=== PATIENT | male | born 1990 | race Two or more races ===

== ENCOUNTER 2022-11-23 13:20 | Inpatient (IN) | payer OTHER ==
[~2022-11-23] VITALS: Ht 170.2 cm; Wt 89.3 kg
[2022-11-23] MEDS ORDERED: ONDANSETRON HCL 4 MG/2 ML VIAL IV PRN (15:15)
[2022-11-23] MEDS ORDERED: VANCOMYCIN 1GM/250ML 250 ML IV ONE (15:15)
[2022-11-23 15:28] LABS: Basophils # (auto) 0 10 ^3/uL (0-0.2); Basophils % (auto) 0.2 % (0.0-2.0); Eosinophils # (auto) 0.1 10 ^3/uL (0-0.8); Eosinophils % (auto) 1.4 % (0.0-7.0); Hematocrit 41.4 % (41.0-53.0); Hemoglobin 14.1 g/dL (13.5-17.5); Mean Corpuscular Hemoglobin 29.8 pg (28.0-32.0); Mean Corpuscular Hgb Conc. 33.9 g/dL (32.0-36.0); Mean Corpuscular Volume 87.9 fL (80.0-100.0); Monocytes # (auto) 0.6 10 ^3/uL (0-1.3); Monocytes % (auto) 8.7 % (0.0-12.0); Neutrophils # (auto) 4.4 10 ^3/uL (1.6-8.6); Neutrophils % (auto) 61.7 % (37.0-80.0); Nucleated Red Blood Cells % 0.1 %; Red Blood Cells 4.71 10^6/uL (4.5-5.90); White Blood Cell 7.1 10^3/uL (4.4-10.8)
[2022-11-23] MEDS ORDERED: CLINDAMYCIN 900MG IV 50 ML IV ONE (15:30)
[2022-11-23 16:19] LABS: Alanine Aminotransferase 25 U/L (7-40); Albumin 4.8 g/dL (3.2-4.8); Alkaline Phosphatase 65 U/L (46-116); Anion Gap 9.2 (5-15); Aspartate Aminotransferase 12 U/L (13-40); Bilirubin, Total 0.4 mg/dL (0.2-1.0); Blood Urea Nitrogen 11 mg/dL (9-23); Calcium 9.8 mg/dL (8.5-10.1); Carbon Dioxide 25.8 mmol/L (20-30); Chloride 106 mmol/L (98-107); Glucose 92 mg/dL (74-106); Sodium 141 mmol/L (136-145); Total Protein 7.9 g/dL (5.7-8.2)
[2022-11-23 16:27] LABS: CRP High Sensitivity 1.81 mg/dL (<1.0)
[2022-11-23] MEDS: HYDROcodone-ACET 10/325MG TAB PO PRN ×2 (16:59→21:49)
[2022-11-23] MEDS ORDERED: VANCOMYCIN PER PHARMACY 0 MG IV SCH (17:00)
[2022-11-23 17:15] VITALS: PULSE 88; RESP 18; O2SAT 97
[2022-11-23 20:00] VITALS: PULSE 80; RESP 16; O2SAT 99
[2022-11-23 20:20] LABS: Urine Bacteria NONE SEEN /hpf (None Seen); Urine Blood Negative /uL (Negative); Urine Clarity Clear (Clear); Urine Color Yellow (Yellow); Urine Mucus FEW (None Seen); Urine Protein, UAD Negative (Negative); Urine Specific Gravity 1.024 (1.001-1.035); Urine Urobilinogen Normal (Negative); Urine WBC 3 /hpf (0 - 3); Urine pH 5.5 (5.0-8.0)
[2022-11-23 21:25] VITALS: BP 126/82; PULSE 61; RESP 16; TEMP 98.9
[2022-11-23 23:22] VITALS: BP 126/82; PULSE 61; RESP 16; TEMP 98.9; O2SAT 96
[2022-11-24] MEDS: VANCOMYCIN 1GM/250ML 250 ML IV SCH ×3 (00:42→16:51)
[2022-11-24 05:00] VITALS: BP 122/80; PULSE 64; RESP 18; TEMP 98; O2SAT 99
[2022-11-24 08:00] VITALS: O2SAT 98
[2022-11-24 08:48] LABS: INR 1.04 (0.9-1.15); Partial Thromboplastin Time 28.4 SEC (24.5-34.5); Prothrombin Time 10.9 sec (9.3-11.8)
[2022-11-24 09:00] VITALS: BP 113/68; PULSE 65; RESP 16; TEMP 97.8; O2SAT 95
[2022-11-24] MEDS ORDERED: ENOXAPARIN SOD 40 MG/0.4 ML SYRINGE SC SCH (10:00)
[2022-11-24] MEDS ORDERED: BACITRACIN TOP OINT 1 UD PKG TOP ONE (10:03)
[2022-11-24] MEDS ORDERED: LIDOCAINE W/ EPINEPHRINE 1% 20ML VIAL ONE (10:03)
[2022-11-24] MEDS ORDERED: ceFAZolin 1GM/50ML 100 ML IV ONE (11:31)
[2022-11-24] MEDS ORDERED: fentaNYL CITRATE 100 MCG/2 ML VL ONE (12:15)
[2022-11-24] MEDS ORDERED: MIDAZOLAM HCL 2MG/2ML 2ml VIAL (1mg/ml) ONE (12:16)
[2022-11-24] MEDS ORDERED: MEPERIDINE HCL (50 MG/ML) 1 ML VIAL ONE (12:19)
[2022-11-24] MEDS ORDERED: LABETALOL HCL 5 MG/ML 4ML SYRINGE IV PRN (12:30)
[2022-11-24] MEDS ORDERED: ePHEDrine SULFATE 50 MG/ML AMP IV PRN (12:30)
[2022-11-24] MEDS ORDERED: MIDAZOLAM HCL 2MG/2ML 2ml VIAL (1mg/ml) IV PRN (12:30)
[2022-11-24] MEDS ORDERED: MORPHINE SULFATE 4 MG/ML SYR/VIAL IV PRN (12:30)
[2022-11-24] MEDS ORDERED: HYDROmorphone HCL 2 MG/ML VL/or syr IV PRN (12:30)
[2022-11-24] MEDS ORDERED: ONDANSETRON HCL 4 MG/2 ML VIAL IV PRN (12:30)
[2022-11-24] MEDS ORDERED: DexAMETHasone SOD PHOS 10MG/1ML VIAL INJ ONE (12:46)
[2022-11-24] MEDS ORDERED: PROPOFOL 10 MG/ML 20 ML IV ONE (12:52)
[2022-11-24 17:00] VITALS: BP 117/63; PULSE 67; RESP 16; TEMP 97.2; O2SAT 96
[2022-11-24 20:00] VITALS: PULSE 92; RESP 20; O2SAT 98
[2022-11-24] MEDS: HYDROcodone-ACET 10/325MG TAB PO PRN (20:39)
[2022-11-24 22:00] VITALS: BP 128/61; PULSE 92; RESP 20; TEMP 97.9; O2SAT 93
[2022-11-25] VITALS (7 sets, daily range): BP systolic 104–151; BP diastolic 46–90; PULSE 55–78; RESP 18–20; TEMP 97.4–98; O2SAT 94–98
[2022-11-25] MEDS: VANCOMYCIN 1GM/250ML 250 ML IV SCH ×4 (00:42→18:43)
[2022-11-25] MEDS: HYDROcodone-ACET 10/325MG TAB PO PRN ×4 (07:32→22:09)
[2022-11-26] VITALS (7 sets, daily range): BP systolic 109–145; BP diastolic 50–73; PULSE 58–77; RESP 15–18; TEMP 98.1–98.3; O2SAT 93–100
[2022-11-26] MEDS: VANCOMYCIN 1GM/250ML 250 ML IV SCH ×3 (00:46→16:46)
[2022-11-26] MEDS: HYDROcodone-ACET 10/325MG TAB PO PRN ×3 (05:29→16:45)
[2022-11-26 14:06] LABS: Chlamydia Trachomatis, NAA Negative (Negative); Neisseria gonorrhoeae, NAA Negative (Negative)
[2022-11-27] MEDS: HYDROcodone-ACET 10/325MG TAB PO PRN ×4 (00:18→16:59)
[2022-11-27] MEDS: VANCOMYCIN 1GM/250ML 250 ML IV SCH ×3 (00:25→17:00)
[2022-11-27 05:00] VITALS: BP 117/48; PULSE 53; RESP 18; TEMP 98.1; O2SAT 95
[2022-11-27 09:01] VITALS: BP 106/47; PULSE 56; RESP 16; TEMP 98; O2SAT 96
[2022-11-27 12:42] VITALS: BP 149/85; PULSE 88; RESP 18; TEMP 98.5; O2SAT 94
[2022-11-27 16:41] VITALS: BP 145/58; PULSE 57; RESP 15; TEMP 97.8; O2SAT 97
[2022-11-27 20:00] VITALS: PULSE 67; RESP 17; O2SAT 97
[2022-11-27 22:00] VITALS: BP 117/55; PULSE 67; RESP 17; TEMP 97.9; O2SAT 97
[2022-11-28] MEDS: HYDROcodone-ACET 10/325MG TAB PO PRN ×5 (01:11→21:55)
[2022-11-28] MEDS: VANCOMYCIN 1GM/250ML 250 ML IV SCH ×3 (01:11→17:39)
[2022-11-28 05:00] VITALS: BP 114/53; PULSE 64; RESP 17; TEMP 98.1; O2SAT 97
[2022-11-28 08:47] VITALS: BP 113/56; PULSE 75; RESP 16; TEMP 97.9; O2SAT 96
[2022-11-28 12:21] VITALS: BP 99/66; PULSE 67; RESP 16; TEMP 98.2; O2SAT 98
[2022-11-28 16:26] VITALS: BP 114/70; PULSE 63; RESP 15; TEMP 97.9; O2SAT 95
[2022-11-28 20:00] VITALS: BP 122/71; PULSE 64; RESP 20; TEMP 97.7; O2SAT 97
[2022-11-28 22:00] VITALS: BP 122/71; PULSE 64; RESP 20; TEMP 97.7; O2SAT 97
[2022-11-29] MEDS: VANCOMYCIN 1GM/250ML 250 ML IV SCH ×3 (00:50→17:05)
[2022-11-29 05:00] VITALS: BP 103/56; PULSE 49; RESP 16; TEMP 97.6; O2SAT 97
[2022-11-29] MEDS: HYDROcodone-ACET 10/325MG TAB PO PRN ×2 (08:46→17:05)
[2022-11-29 09:00] VITALS: BP 112/54; PULSE 67; RESP 19; TEMP 97.8; O2SAT 100
[2022-11-29 13:00] VITALS: BP 111/48; PULSE 71; RESP 19; TEMP 97.7; O2SAT 100
[2022-11-29 16:58] VITALS: BP 114/69; PULSE 79; RESP 19; TEMP 97.9; O2SAT 100
[2022-11-29 20:00] VITALS: BP 112/68; PULSE 78; RESP 18; TEMP 97.9; O2SAT 100
[2022-11-29 22:00] VITALS: BP 122/63; PULSE 75; RESP 18; TEMP 97.9; O2SAT 95
[2022-11-30] MEDS: VANCOMYCIN 1GM/250ML 250 ML IV SCH ×3 (02:11→17:37)
[2022-11-30 04:53] VITALS: BP 118/51; PULSE 64; RESP 19; TEMP 98.4; O2SAT 96
[2022-11-30 09:00] VITALS: BP 129/67; PULSE 65; RESP 20; TEMP 98.5; O2SAT 96
[2022-11-30] MEDS: HYDROcodone-ACET 10/325MG TAB PO PRN ×2 (10:05→17:42)
[2022-11-30 13:00] VITALS: BP 128/68; PULSE 69; RESP 20; TEMP 97.9; O2SAT 92
[2022-11-30 17:00] VITALS: BP 142/62; PULSE 79; RESP 19; TEMP 97.5; O2SAT 96
[2022-11-30 20:00] VITALS: PULSE 67; RESP 14; O2SAT 94
[2022-11-30 22:00] VITALS: BP 122/71; PULSE 67; RESP 14; TEMP 98.2; O2SAT 94
[2022-12-01] MEDS: VANCOMYCIN 1GM/250ML 250 ML IV SCH ×3 (00:51→17:58)
[2022-12-01 05:00] VITALS: BP 104/58; PULSE 66; RESP 14; TEMP 98; O2SAT 98
[2022-12-01 06:27] LABS: Basophils # (auto) 0 10 ^3/uL (0-0.2); Basophils % (auto) 0.4 % (0.0-2.0); Eosinophils # (auto) 0.2 10 ^3/uL (0-0.8); Eosinophils % (auto) 2.7 % (0.0-7.0); Hematocrit 42.4 % (41.0-53.0); Lymphocytes # (auto) 2.5 10 ^3/uL (0.4-5.4); Lymphocytes % (auto) 28.9 % (10.0-50.0); Mean Corpuscular Hgb Conc. 35.4 g/dL (32.0-36.0); Mean Corpuscular Volume 84.7 fL (80.0-100.0); Monocytes # (auto) 0.8 10 ^3/uL (0-1.3); Monocytes % (auto) 9.7 % (0.0-12.0); Neutrophils # (auto) 5.1 10 ^3/uL (1.6-8.6); Neutrophils % (auto) 58.3 % (37.0-80.0); Nucleated Red Blood Cells % 0.1 %; Red Blood Cells 5.01 10^6/uL (4.5-5.90); Red Cell Distribution Width 12.8 % (11.8-14.3); White Blood Cell 8.7 10^3/uL (4.4-10.8)
[2022-12-01 06:45] LABS: Calcium 9.6 mg/dL (8.7-10.4); Chloride 103 mmol/L (98-107); Potassium 4.3 mmol/L (3.5-5.1); Sodium 137 mmol/L (136-145)
[2022-12-01 06:46] LABS: Anion Gap 6.7 (5-15); Carbon Dioxide 27.3 mmol/L (20-30)
[2022-12-01 06:51] LABS: BUN/Creatinine Ratio 8.8 (10.0-20.0); Blood Urea Nitrogen 10 mg/dL (9-23); Glucose 94 mg/dL (74-106)
[2022-12-01 09:00] VITALS: BP 139/69; PULSE 60; RESP 20; TEMP 97.8; O2SAT 98
[2022-12-01] MEDS: HYDROcodone-ACET 10/325MG TAB PO PRN ×2 (10:39→17:58)
[2022-12-01 13:00] VITALS: BP 125/66; PULSE 58; RESP 19; TEMP 98.6; O2SAT 99
[2022-12-01 17:00] VITALS: BP 129/70; PULSE 69; RESP 19; TEMP 98.5; O2SAT 98
[2022-12-01 20:00] VITALS: O2SAT 97
[2022-12-01 22:00] VITALS: BP 124/67; PULSE 74; RESP 18; TEMP 98.2; O2SAT 97
[2022-12-02] MEDS: VANCOMYCIN 1GM/250ML 250 ML IV SCH ×3 (01:22→18:11)
[2022-12-02 05:00] VITALS: BP 106/45; PULSE 49; RESP 18; TEMP 98; O2SAT 100
[2022-12-02 07:30] VITALS: TEMP 36.7
[2022-12-02 08:00] VITALS: BP 101/60; PULSE 61; RESP 20; TEMP 97.7; O2SAT 96
[2022-12-02 12:00] VITALS: BP 119/58; PULSE 79; RESP 20; TEMP 97.8; O2SAT 94
[2022-12-02 16:00] VITALS: BP 132/61; PULSE 65; RESP 20; TEMP 98.3; O2SAT 94
[2022-12-02 20:00] VITALS: O2SAT 97
[2022-12-02] MEDS: HYDROcodone-ACET 10/325MG TAB PO PRN (22:02)
[2022-12-03] MEDS: VANCOMYCIN 1GM/250ML 250 ML IV SCH ×2 (00:40→08:37)
[2022-12-03 07:30] VITALS: TEMP 36.8
[2022-12-03 08:00] VITALS: BP 99/34; PULSE 55; RESP 20; TEMP 98.4; O2SAT 95; O2SAT 97
[2022-12-03] MEDS: HYDROcodone-ACET 10/325MG TAB PO PRN (08:37)
[2022-12-03 13:00] VITALS: BP 111/54; PULSE 62; RESP 20; TEMP 98.7; O2SAT 97
[2022-12-03] MEDS ORDERED: CIPR500T4 PO (14:23)
[2022-12-03 15:47] VITALS: TEMP 37.1
== END 2022-12-03 16:00 | DRG 718 ==
LOC: ER 13:20 → EEVIPCON 13:20 → OVERFLOW 16:37 → WEST WING 21:18
PROVIDERS: ADMIT Internal Medicine; ATTEND Internal Medicine
PROC: 0V950ZZ Drainage of Scrotum, Open Approach (ICD-10-PCS; principal; 2022-11-24 12:08)
DX: N49.2 Inflammatory disorders of scrotum (principal); B95.62 Methicillin resistant Staphylococcus aureus infection as the cause of diseases classified elsewhere; Z88.0 Allergy status to penicillin
CPT/HCPCS: 36415; 76870; 80048; 80053; 80202; 81001; 83605; 85025; 85610; 85730; 86141; 87040; 87077; 87081; 87186; 87205; 96365; G0378; J0690; J1100; J2250; J2704